=== PATIENT | female | born 1955 | race Caucasian/White ===

== ENCOUNTER 2022-04-27 05:46 | Day surgery (SDC) | payer BC ==
[2022-04-25 14:18] VITALS: BMI 27.3
[2022-04-27] MEDS ORDERED: Thrombin 5000 UNITS/5 ML VIAL ONE (06:10)
[2022-04-27] MEDS ORDERED: Sodium Chloride 0.9% 0 ML ONE (06:22)
[2022-04-27] MEDS ORDERED: CEFAZOLIN 2 GM VIAL ONE ×3 (06:22→11:56)
[2022-04-27] MEDS ORDERED: Bacitracin Zinc Ointment 30 gm TUBE ONE (06:26)
[2022-04-27] MEDS ORDERED: Sodium Chloride 0.9% 100 ML ONE ×2 (06:36→11:56)
[2022-04-27] MEDS ORDERED: Fentanyl 250 MCG/5 ML VIAL ONE (06:41)
[2022-04-27] MEDS ORDERED: Midazolam HCl 2 mg/2 ml Vial ONE (07:02)
[2022-04-27] MEDS ORDERED: PROPOFOL 200 MG/20 ML VIAL ONE (07:03)
[2022-04-27] MEDS ORDERED: Rocuronium Bromide 10 MG/ML (10ML VIAL) ONE (07:03)
[2022-04-27] MEDS ORDERED: Dexamethasone 20 MG/5 ML VIAL ONE (07:03)
[2022-04-27] MEDS ORDERED: Glycopyrrolate 0.2 MG/ML 5 ML SYRINGE ONE (07:03)
[2022-04-27] MEDS ORDERED: NEOSTIGMINE 3 MG/3 ML SYR 3 MG/3 ML SYRINGE ONE (07:03)
[2022-04-27] MEDS ORDERED: PHENYLEPHRINE-NS 100 MCG/ML 10 ML SYRINGE ONE ×2 (07:03→08:04)
[2022-04-27] MEDS ORDERED: Lidocaine 1% PF 5 ML VIAL ONE (07:03)
[2022-04-27] MEDS ORDERED: Albuterol Sulfate HFA (OR ONLY) ONE ×2 (07:03→08:35)
[2022-04-27] MEDS ORDERED: Fentanyl 100 MCG/2 ML VIAL ONE (09:07)
[2022-04-27] MEDS ORDERED: Acetaminophen/Codeine 30-300mg Tablet ONE (12:11)
[2022-04-27] MEDS ORDERED: Ondansetron PF 4 MG/2 ML Vial ONE (13:02)
== END 2022-04-27 14:45 | disposition home or self-care (01) ==
LOC: SDC 05:46 → EDSTATUS 17:30
PROVIDERS: ATTEND Neurological Surgery
PROC: 0RG20A0 Fusion of 2 or more Cervical Vertebral Joints with Interbody Fusion Device, Anterior Approach, Anterior Column, Open Approach (ICD-10-PCS; principal; 2022-04-27)
DX: M47.22 Other spondylosis with radiculopathy, cervical region (principal); M47.12 Other spondylosis with myelopathy, cervical region; M48.02 Spinal stenosis, cervical region; M40.202 Unspecified kyphosis, cervical region; M19.90 Unspecified osteoarthritis, unspecified site; J45.909 Unspecified asthma, uncomplicated; F17.200 Nicotine dependence, unspecified, uncomplicated; F19.11 Other psychoactive substance abuse, in remission; Z79.899 Other long term (current) drug therapy; Z88.2 Allergy status to sulfonamides
CPT/HCPCS: C1713; C1889; J1100; J2250; J2405; J2704; J3010; J3490